=== PATIENT | female | born 1945 | race African-American/Black ===

== ENCOUNTER 2025-03-25 07:11 | Observation (INO) | payer MEDICARE ==
[~2025-03-25] VITALS: Ht 162.6 cm; Wt 79.8 kg
[~2025-03-25 07:11] MED LIST: FAMOTIDINE20 MG PO; GABAPENTIN300 MG PO; LINZESS145 MCG PO; LISINOPRIL10 MG PO; MEMANTINE HCL ER7 MG PO; METFORMIN HCL500 M2 PO; QUETIAPINE FUMA25 MG PO; SIMVASTATIN20 MG PO; VITAMIN D3 COM1 EACH PO
[2025-03-25 08:40] LABS: BASOPHILS % 0.2 % (0.0-1.0); EOSINOPHILS % 1.0 % (0.0-6.0); LYMPHOCYTES % 28.1 % (18.0-39.1); MONOCYTES % 11.4 % (4.4-11.3); NEUTROPHILS % 58.9 % (38.7-80.0); RED CELL DISTRIBUTION WIDTH 13.2 % (11.7-14.4)
[2025-03-25 09:16] LABS: EST GLOMERULAR FILTRATION RATE 71.0 ML/MIN (>=60)
[2025-03-25] MEDS ORDERED: PROPOFOL IV EMULSION 10 MG/ML 20 ML VIAL ONE (10:26)
[2025-03-25] MEDS ORDERED: ROCURONIUM BROMIDE 1 ML IV ONE (10:27)
[2025-03-25] MEDS ORDERED: FENTANYL CITRATE/PF 100MCG/2 ML INJ ONE (10:27)
[2025-03-25] MEDS ORDERED: LIDOCAINE HCL 2% LOCAL INJ 5 ML SDV VIAL INJ ONE (10:27)
[2025-03-25] MEDS: LACTATED RINGER'S 1,000 ML ONE (10:28)
[2025-03-25] MEDS ORDERED: ONDANSETRON HCL INJ 2MG/ML 2ML 2 MG/ML VIAL ONE (10:29)
[2025-03-25] MEDS ORDERED: DEXAMETHASONE SOD PHOS INJ 4 MG/ML SDV ONE (10:29)
[2025-03-25] MEDS ORDERED: SUGAMMADEX SODIUM 200 MG/2 ML VIAL IV ONE (12:08)
[2025-03-25] MEDS: FENTANYL CITRATE/PF 100MCG/2 ML INJ ONE (12:40)
[2025-03-25] MEDS: SODIUM CHLORIDE 0.9% 1000ML 1,000 ML IV SCH (16:15)
[2025-03-25 16:56] VITALS: BP 138/83; PULSE 60; RESP 19; TEMP 98.1; O2SAT 100
[2025-03-25] MEDS: METFORMIN HCL 500 MG TAB CR PO SCH (17:00)
[2025-03-25] MEDS ORDERED: MEMANTINE HCL5 MG PO (17:56)
[2025-03-25 19:21] VITALS: BP 134/59; PULSE 67; RESP 18; TEMP 98.3; O2SAT 100
[2025-03-25] MEDS: HYDROCODONE/APAP 5MG-325MG TAB PO PRN (22:19)
[2025-03-25 23:00] VITALS: BP 134/59; PULSE 67; RESP 18; TEMP 98.3; O2SAT 100
[2025-03-25 23:07] VITALS: BP 133/63; PULSE 58; RESP 18; TEMP 98.5; O2SAT 100
[2025-03-26 08:00] VITALS: BP 149/65; PULSE 56; RESP 17; TEMP 97.9; O2SAT 99
[2025-03-26] MEDS: FAMOTIDINE 20 MG TAB PO SCH (08:38)
[2025-03-26] MEDS: GABAPENTIN 300 MG CAP PO SCH (08:38)
[2025-03-26] MEDS: MEMANTINE 10 MG TAB PO SCH (08:38)
[2025-03-26] MEDS: SIMVASTATIN 20 MG TAB PO SCH (08:38)
[2025-03-26] MEDS: LINACLOTIDE 72 MCG CAPSULE PO SCH (08:39)
[2025-03-26] MEDS: LISINOPRIL 10 MG TAB PO SCH (08:39)
[2025-03-26] MEDS: QUETIAPINE FUMARATE 25 MG TAB PO SCH (08:42)
[2025-03-26 09:27] VITALS: BP 149/65; PULSE 56; RESP 17; TEMP 97.9; O2SAT 99
== END 2025-03-26 10:15 | disposition home or self-care (01) ==
LOC: OR 07:11 → PACU V 14:44 → MED/SURG 16:36
PROVIDERS: ADMIT Surgery; ATTEND Surgery
DX: K80.10 Calculus of gallbladder with chronic cholecystitis without obstruction (principal); I10 Essential (primary) hypertension; E11.9 Type 2 diabetes mellitus without complications; Z79.84 Long term (current) use of oral hypoglycemic drugs; Z85.038 Personal history of other malignant neoplasm of large intestine; E78.5 Hyperlipidemia, unspecified
CPT/HCPCS: 36415 ×2; 47562; 71046; 80053; 82948 ×2; 85025; 88304; 93005; C1766; G0378 ×2; J1100; J2003; J2405; J2704; J3010; J7121